=== PATIENT | male | born 1965 | race Two or more races ===

== ENCOUNTER 2016-10-15 15:23 | Inpatient (IN) | payer MEDICARE ==
[~2016-10-15] VITALS: Ht 175.3 cm; Wt 97.5 kg
[2016-10-15] MEDS ORDERED: BUSP10TA3 PO (16:24)
[2016-10-15] MEDS ORDERED: PANT40TA4 PO (16:24)
[2016-10-15] MEDS ORDERED: LISI10TA5 PO (16:24)
[2016-10-15] MEDS ORDERED: BLOO-697 IN (16:24)
[2016-10-15] MEDS ORDERED: INSU100I19 SQ (16:24)
[2016-10-15] MEDS ORDERED: ATOR40TA PO (16:24)
[2016-10-15] MEDS ORDERED: METF500T4 PO (16:24)
[2016-10-15] MEDS ORDERED: DULO60CA45 PO (16:24)
[2016-10-15] MEDS ORDERED: IBUP-1955 PO (16:24)
[2016-10-15] MEDS ORDERED: SITA100T PO (16:24)
[2016-10-15] MEDS ORDERED: INSU100V26 SQ (16:24)
[2016-10-15 17:30] VITALS: BP 120/65
[2016-10-15] MEDS ORDERED: BLOOD SUGAR DIAGNOSTIC 1 EACH STRIP IN SCH (17:30)
[2016-10-15] MEDS ORDERED: *INSULIN REGULAR(HUMULIN R)HUM 100 UNIT/ML VIAL SQ PRN (17:30)
[2016-10-15] MEDS ORDERED: IBUPROFEN 600 MG TABLET PO PRN (17:30)
[2016-10-15] MEDS ORDERED: DEXTROSE 50%-WATER 50 ML DISP.SYRIN IV PRN (17:30)
[2016-10-15] MEDS: BLOOD SUGAR DIAGNOSTIC 1 EACH STRIP IN SCH ×2 (17:30→22:22)
[2016-10-15] MEDS: ATORVASTATIN 40 MG TABLET PO SCH (17:58)
[2016-10-15] MEDS ORDERED: LORAZEPAM 0.5 MG TABLET PO PRN (18:00)
[2016-10-15] MEDS ORDERED: ACETAMINOPHEN 325 MG TABLET PO PRN (18:00)
[2016-10-15] MEDS ORDERED: MAG HYDROX/AL HYDROX/SIMETH 30 ML UDC PO PRN (18:00)
[2016-10-15] MEDS ORDERED: MAGNESIUM HYDROXIDE 30 ML UDC PO PRN (18:00)
[2016-10-15 20:00] VITALS: BP 112/65
[2016-10-15] MEDS: INSULIN DETEMIR 100 UNIT/ML CARTRIDGE SQ SCH (22:22)
[2016-10-16] MEDS: BLOOD SUGAR DIAGNOSTIC 1 EACH STRIP IN SCH ×4 (07:39→22:09)
[2016-10-16 08:00] VITALS: BP 126/68
[2016-10-16 08:09] LABS: ALBUMIN 3.4 g/dL (3.4-5.0); BILIRUBIN,TOTAL 0.5 mg/dL (0.2-1.0); CALCIUM, SERUM 9.1 mg/dL (8.5-10.1); CREATININE 1.1 mg/dL (0.6-1.3); TOTAL PROTEIN, SERUM 6.4 g/dL (6.4-8.2)
[2016-10-16] MEDS: LISINOPRIL (10MG) 10 MG TABLET PO SCH (09:25)
[2016-10-16] MEDS: METFORMIN 500 MG TABLET PO SCH ×2 (09:25→17:50)
[2016-10-16] MEDS: SITAGLIPTIN PHOSPHATE 50 MG TABLET PO SCH (09:25)
[2016-10-16] MEDS: INSULIN DETEMIR 100 UNIT/ML CARTRIDGE SQ SCH ×2 (10:51→21:40)
[2016-10-16] MEDS: risperiDONE 1 MG TABLET PO SCH ×2 (13:49→17:50)
[2016-10-16 16:00] VITALS: BP 113/58
[2016-10-16] MEDS: ATORVASTATIN 40 MG TABLET PO SCH (17:50)
[2016-10-16 20:00] VITALS: BP 119/71
[2016-10-16] MEDS: TEMAZEPAM 7.5 MG CAPSULE PO PRN (22:09)
[2016-10-17] MEDS: BLOOD SUGAR DIAGNOSTIC 1 EACH STRIP IN SCH ×4 (07:30→21:40)
[2016-10-17 08:00] VITALS: BP 103/55
[2016-10-17] MEDS: LISINOPRIL (10MG) 10 MG TABLET PO SCH (09:00)
[2016-10-17] MEDS: METFORMIN 500 MG TABLET PO SCH ×2 (09:02→17:22)
[2016-10-17] MEDS: SITAGLIPTIN PHOSPHATE 50 MG TABLET PO SCH (09:02)
[2016-10-17] MEDS: risperiDONE 1 MG TABLET PO SCH ×2 (09:03→17:22)
[2016-10-17] MEDS: INSULIN DETEMIR 100 UNIT/ML CARTRIDGE SQ SCH ×2 (09:07→21:20)
[2016-10-17] MEDS: INSULIN REGULAR, HUMAN 100 UNIT/ML 3 ML VIAL SQ PRN ×3 (12:58→21:19)
[2016-10-17 16:00] VITALS: BP 119/73
[2016-10-17] MEDS: ATORVASTATIN 40 MG TABLET PO SCH (18:39)
[2016-10-17 20:10] VITALS: BP 123/49
[2016-10-17] MEDS: TEMAZEPAM 7.5 MG CAPSULE PO PRN (21:40)
[2016-10-18 08:00] VITALS: BP 135/75
[2016-10-18] MEDS: BLOOD SUGAR DIAGNOSTIC 1 EACH STRIP IN SCH ×4 (08:20→21:53)
[2016-10-18] MEDS: LISINOPRIL (10MG) 10 MG TABLET PO SCH (08:21)
[2016-10-18] MEDS: SITAGLIPTIN PHOSPHATE 50 MG TABLET PO SCH (08:21)
[2016-10-18] MEDS: METFORMIN 500 MG TABLET PO SCH ×2 (08:21→16:29)
[2016-10-18] MEDS: risperiDONE 1 MG TABLET PO SCH ×3 (08:21→16:29)
[2016-10-18] MEDS: INSULIN DETEMIR 100 UNIT/ML CARTRIDGE SQ SCH ×2 (08:25→21:53)
[2016-10-18] MEDS: INSULIN REGULAR, HUMAN 100 UNIT/ML 3 ML VIAL SQ PRN (08:27)
[2016-10-18] MEDS: NICOTINE PATCH (14MG) 14 MG PATCH.TD24 TD SCH (15:16)
[2016-10-18 16:00] VITALS: BP 103/63
[2016-10-18] MEDS: ATORVASTATIN 40 MG TABLET PO SCH (17:55)
[2016-10-18 19:56] VITALS: BP 106/62
[2016-10-18] MEDS: TEMAZEPAM 7.5 MG CAPSULE PO PRN (21:53)
[2016-10-19] MEDS: BLOOD SUGAR DIAGNOSTIC 1 EACH STRIP IN SCH ×4 (07:30→20:29)
[2016-10-19 08:00] VITALS: BP 100/59
[2016-10-19] MEDS: INSULIN REGULAR, HUMAN 100 UNIT/ML 3 ML VIAL SQ PRN ×4 (08:40→18:33)
[2016-10-19] MEDS: INSULIN DETEMIR 100 UNIT/ML CARTRIDGE SQ SCH ×2 (08:48→20:37)
[2016-10-19] MEDS: LISINOPRIL (10MG) 10 MG TABLET PO SCH (09:00)
[2016-10-19] MEDS: SITAGLIPTIN PHOSPHATE 50 MG TABLET PO SCH (09:08)
[2016-10-19] MEDS: METFORMIN 500 MG TABLET PO SCH ×2 (09:08→17:00)
[2016-10-19] MEDS: risperiDONE 1 MG TABLET PO SCH ×2 (09:10→17:00)
[2016-10-19] MEDS: NICOTINE PATCH (14MG) 14 MG PATCH.TD24 TD SCH (09:25)
[2016-10-19 16:00] VITALS: BP 129/75
[2016-10-19] MEDS: ATORVASTATIN 40 MG TABLET PO SCH (18:00)
[2016-10-19 21:08] VITALS: BP 128/76
[2016-10-19] MEDS: TEMAZEPAM 7.5 MG CAPSULE PO PRN (22:24)
[2016-10-20 08:00] VITALS: BP 100/58
[2016-10-20] MEDS: BLOOD SUGAR DIAGNOSTIC 1 EACH STRIP IN SCH ×4 (08:25→22:05)
[2016-10-20] MEDS: INSULIN REGULAR, HUMAN 100 UNIT/ML 3 ML VIAL SQ PRN ×3 (08:26→17:41)
[2016-10-20] MEDS: INSULIN DETEMIR 100 UNIT/ML CARTRIDGE SQ SCH ×2 (08:44→21:19)
[2016-10-20] MEDS: SITAGLIPTIN PHOSPHATE 50 MG TABLET PO SCH (09:29)
[2016-10-20] MEDS: LISINOPRIL (10MG) 10 MG TABLET PO SCH (09:29)
[2016-10-20] MEDS: risperiDONE 1 MG TABLET PO SCH ×2 (09:30→16:05)
[2016-10-20] MEDS: METFORMIN 500 MG TABLET PO SCH ×2 (09:30→16:05)
[2016-10-20] MEDS: NICOTINE PATCH (14MG) 14 MG PATCH.TD24 TD SCH (09:30)
[2016-10-20 16:00] VITALS: BP 114/65
[2016-10-20] MEDS: ATORVASTATIN 40 MG TABLET PO SCH (16:05)
[2016-10-20 19:55] VITALS: BP 120/71
[2016-10-20] MEDS: TEMAZEPAM 7.5 MG CAPSULE PO PRN (22:10)
[2016-10-21] MEDS: BLOOD SUGAR DIAGNOSTIC 1 EACH STRIP IN SCH ×2 (07:42→12:07)
[2016-10-21 08:00] VITALS: BP 107/41
[2016-10-21] MEDS: INSULIN REGULAR, HUMAN 100 UNIT/ML 3 ML VIAL SQ PRN ×2 (08:00→12:32)
[2016-10-21] MEDS: INSULIN DETEMIR 100 UNIT/ML CARTRIDGE SQ SCH (08:00)
[2016-10-21 08:07] VITALS: BP 107/41
[2016-10-21] MEDS: risperiDONE 1 MG TABLET PO SCH (08:07)
[2016-10-21] MEDS: LISINOPRIL (10MG) 10 MG TABLET PO SCH (08:07)
[2016-10-21] MEDS: METFORMIN 500 MG TABLET PO SCH (08:07)
[2016-10-21] MEDS: SITAGLIPTIN PHOSPHATE 50 MG TABLET PO SCH (08:08)
[2016-10-21] MEDS: NICOTINE PATCH (14MG) 14 MG PATCH.TD24 TD SCH (08:08)
== END 2016-10-21 14:05 | disposition home or self-care (01) | DRG 885 ==
LOC: ER 15:27 → GPS 16:35
PROVIDERS: ADMIT Psychiatry & Neurology Psychosomatic Medicine; ATTEND Nurse Practitioner Acute Care
DX: F31.9 Bipolar disorder, unspecified (principal); E11.65 Type 2 diabetes mellitus with hyperglycemia; R45.851 Suicidal ideations; F17.200 Nicotine dependence, unspecified, uncomplicated; I10 Essential (primary) hypertension; F20.9 Schizophrenia, unspecified; H91.90 Unspecified hearing loss, unspecified ear; F10.21 Alcohol dependence, in remission
CPT/HCPCS: 36415; 80053-TC; 82962-TC; 87081-TC; A4606; A6402; J1815; Z7610